=== PATIENT | female | born 1985 | race Caucasian/White ===

== ENCOUNTER 2018-08-21 09:23 | Day surgery (SDC) | payer OTHER ==
[2018-08-18 13:59] VITALS: BMI 25.7
[2018-08-21] MEDS ORDERED: BUPIVACAINE HCL/PF 2.5 MG/ML - 30 ML VIAL IJ ONE (12:00)
[2018-08-21] MEDS ORDERED: SUCCINYLCHOLINE CHLORIDE 200 MG/10 ML VIAL ONE (12:33)
[2018-08-21] MEDS ORDERED: PROPOFOL 20 ML ONE ×2 (12:33)
[2018-08-21] MEDS ORDERED: MIDAZOLAM HCL 2 MG/2 ML SINGLE DOSE VIAL ONE (12:34)
[2018-08-21] MEDS ORDERED: DEXAMETHASONE SOD PHOSPHATE 4 MG/1 ML VIAL ONE (12:39)
[2018-08-21] MEDS ORDERED: ONDANSETRON 4 MG/2 ML VIAL ONE (12:39)
[2018-08-21] MEDS ORDERED: LIDOCAINE HCL/PF 2% SDV 5ML VIAL ONE (12:39)
[2018-08-21] MEDS ORDERED: ceFAZolin SODIUM 1 GM VIAL ONE (12:44)
[2018-08-21] MEDS ORDERED: KETOROLAC TROMETHAMINE 30 MG/1 ML VIAL ONE (12:53)
[2018-08-21] MEDS ORDERED: BUPIVACAINE HCL/PF 0.25% (2.5MG/ML) 10 ML VIAL IJ ONE (13:05)
[2018-08-21 15:14] VITALS: BP 110/78; PULSE 77; TEMP 98
[2018-08-21] MEDS ORDERED: ONDANSETRON 4 MG/2 ML VIAL IVPUSH PRN (15:14)
[2018-08-21] MEDS ORDERED: oxyCODONE HCL 5 MG TABLET PO PRN ×2 (15:14)
[2018-08-21] MEDS ORDERED: PROMETHAZINE HCL 25 MG/1 ML VIAL IVPB PRN (15:14)
--- NOTE | 2018-08-23 10:25 | OP ---
DATE OF OPERATION: 08/21/2018 SURGEON: Krishna Salmon MD [facility] CUSTODIAN: CHERISE Acharya PREOPERATIVE DIAGNOSES: 1. Left knee medial and lateral meniscal tear. 2. Left knee cartilage injury. 3. Left knee synovitis. POSTOPERATIVE DIAGNOSES: 1. Left knee medial and lateral meniscal tear. 2. Left knee cartilage injury. 3. Left knee synovitis. PROCEDURE: 1. Left knee arthroscopy with partial meniscectomy of medial and lateral meniscus; CPT code 72274. 2. Left knee arthroscopy with chondroplasty and abrasionplasty; CPT code 30686. 3. Left knee arthroscopy with synovectomy; CPT code 72921. FINDINGS: 1. Medial meniscus undersurface posterior horn tear. 2. Lateral meniscus anterior horn tear, minor. 3. Synovitis of the patellofemoral and intercondylar notch with thickened scar tissue anteriorly. 4. Grade 2 cartilage injury of the medial femoral condyle, 2 cm x 2 cm. 5. ACL and PCL intact. 6. Minimal cartilage change of the lateral joint line. 7. Grade 2 cartilage injury of the patellofemoral trochlea and patellofemoral joint. PROCEDURE: Informed consent was obtained. The patient came to the operating room, where the lower extremity was prepped and draped in a sterile fashion. A tourniquet was placed on the upper thigh, but not inflated. Using standard arthroscopic technique, a lateral incision and portal was made to allow for introduction of the camera into the suprapatellar bursa. This was then taken to the medial joint line, where under direct visualization, a medial incision and portal was made. Excessive synovium noted in the medial, lateral and patellofemoral and notch area was removed by an upbiter, shaver and Bovie cautery. This was found to bring in inflammatory tissue into the joint surface, a source of pain and dysfunction. Probing of the medial and lateral meniscus found tears, as described in the findings. These were removed with the upbiter and shaver and taken back to a stable rim. Grade 2 to 3 degenerative changes were treated with a chondroplasty, removing all flaking surfaces with low-setting Bovie along the periphery to prevent further flaking. Grade 4 changes, as noted, were treated with an abrasionplasty, creating a bleeding surface at the bone/cartilage interface. Aggressive debridement with shaver/jeanie created bleeding surface. Micro fracture also done when indicated in findings. All areas of the knee were once again reexamined. The knee was then drained and a single suture was placed in all portals. A sterile dressing was placed and the patient was transferred to the recovery room without complication. The PA listed above was present and assisted at surgery. Their presence was absolutely medically necessary for the completion of the procedure. They helped hold the arthroscopy, pass instruments (and implants when indicated) and the procedure could not have been completed without their assistance. KRISHNA SALMON M.D. [id number]
--- NOTE | 2018-08-28 16:20 | PATH ---
Surgical Pathology Report Patient Name: MARIA GUADALUPE BISWAS [facility]. Rec. #: [id number] /Age/Gender: 1985 (Age: 33) / F Account: [id number] Location: [facility] AMBULATORY Taken: 08/21/2018 Received: 08/21/2018 Reported: 08/28/2018 Physicians: Krishna Arshad M.D. Specimen(s) Received LEFT KNEE SHAVINGS Clinical History Left knee internal derangement Final Diagnosis KNEE, LEFT, ARTHROSCOPIC SHAVINGS: FIBROSYNOVIAL TISSUE AND SCANT CARTILAGE. Electronically Signed Nena White M.D. Gross Description Received in formalin, labeled "left knee shavings," is a 3.5 x 2.0 x 0.3 cm. aggregate of harden-yellow soft tissue fragments. The formalin is filtered and the specimen is entirely submitted in one cassette. 08/24/2018 saudi08/24/2018
== END 2018-08-21 15:14 | disposition home or self-care (01) ==
LOC: FASU 09:23
PROVIDERS: ATTEND Orthopaedic Surgery
PROC: 0SBD4ZZ Excision of Left Knee Joint, Percutaneous Endoscopic Approach (ICD-10-PCS; 2018-08-21)
PROC: 0SBD4ZZ Excision of Left Knee Joint, Percutaneous Endoscopic Approach (ICD-10-PCS; 2018-08-21)
PROC: 0SBD4ZZ Excision of Left Knee Joint, Percutaneous Endoscopic Approach (ICD-10-PCS; principal; 2018-08-21 11:30)
DX: S83.242A Other tear of medial meniscus, current injury, left knee, initial encounter (principal); S83.282A Other tear of lateral meniscus, current injury, left knee, initial encounter; S83.8X2A Sprain of other specified parts of left knee, initial encounter; M65.862 Other synovitis and tenosynovitis, left lower leg; X58.XXXA Exposure to other specified factors, initial encounter; Y93.9 Activity, unspecified; Y92.9 Unspecified place or not applicable
CPT/HCPCS: 84703; 88304-TC; 94760